=== PATIENT | male | born 1955 | race Two or more races ===

== ENCOUNTER 2025-04-28 18:53 | Emergency (ER) | payer OTHER ==
[~2025-04-28] VITALS: Ht 177.8 cm; Wt 78.9 kg
[2025-04-28 18:59] VITALS: BP 147/88; O2SAT 96
[2025-04-28] MEDS ORDERED: CLINDAMYCIN PHOSPHATE 150 MG/ML (300mg) IM ONE (20:15)
[2025-04-28] MEDS ORDERED: KETOROLAC TROMETHAMINE 30 MG VIAL IM ONE (20:15)
[2025-04-28] MEDS ORDERED: CLINDAMYCIN PHOSPHATE 150 MG/ML (300mg) ONE (20:27)
[2025-04-28] MEDS ORDERED: KETOROLAC TROMETHAMINE 30 MG VIAL ONE (20:27)
[2025-04-28] MEDS ORDERED: INTESTINEX680 M1 PO (20:32)
[2025-04-28] MEDS ORDERED: CLEOCIN HCL300 MG PO (20:32)
[2025-04-28] MEDS ORDERED: KETOROLAC TROMETHAMINE 10 MG TABLET PO ONE ×2 (20:36→20:45)
== END 2025-04-28 20:47 | disposition home or self-care (01) ==
LOC: ER 18:53
DX: K04.7 Periapical abscess without sinus (principal)
CPT/HCPCS: 96372; 99282; J3490